=== PATIENT | female | born 1985 ===

== ENCOUNTER → 2024-06-02 | Outpatient (CLI) | payer OTHER ==
[~2024-06-02] MED LIST: AMOXICILLIN 8751 TAB PO; CARAFATE 1GM1 G PO; IBU600 MG PO; MOTRIN 800800 MG/TAB PO; NO HOME MEDICATIONS; PERCOCET 325 MG1 TA2 PO; PRENATAL PO; PROTONIX 40MG T40 MG PO; VALTREX 50500 MG/TAB PO; ZOLOFT 100MG100 MG
== END ==
LOC: MC.RAD 09:07
DX: Z12.31 Encounter for screening mammogram for malignant neoplasm of breast (principal)